=== PATIENT | female | born 1975 | race Caucasian/White ===

== ENCOUNTER 2024-08-27 12:27 | Outpatient (CLI) | payer OTHER, SELFPAY ==
--- NOTE | 2024-08-27 12:54 | XRR_ITS ---
PROCEDURE INFORMATION: Exam: XR Lumbosacral Spine Exam date and time: 08/27/2024 12:59 PM Age: 48 years old Clinical indication: Low back pain; Chronic lower back, bilateral hip and tailbone pain for years, no specific injury; Additional info: Arthritis TECHNIQUE: Imaging protocol: Radiologic exam of the lumbosacral spine. Views: 2 or 3 views. COMPARISON: No relevant prior studies available. FINDINGS: Bones/joints: Slight grade 1 retrolisthesis at L5-S1. Vertebral body heights are maintained. No acute fracture. Mild degenerative changes at L5-S1. Soft tissues: Unremarkable. Organs: Cholecystectomy clips. XR/XR lumbar spine 2-3V* [id number] IMPRESSION: 1. No acute osseous findings. 2. Mild degenerative changes at L5-S1.
== END 2024-08-27 12:28 | disposition home or self-care (01) ==
LOC: RAD 12:36
PROVIDERS: Family Provider Family Medicine; PCP Family Medicine; Visit Provider Chiropractor
DX: M47.897 Other spondylosis, lumbosacral region (principal); Z90.49 Acquired absence of other specified parts of digestive tract
CPT/HCPCS: 72100